=== PATIENT | female | born 1990 | race Caucasian/White ===

== ENCOUNTER 2019-12-22 09:23 | Inpatient (IN) | payer MEDICAID ==
[~2019-12-22] VITALS: Ht 154.9 cm; Wt 100.2 kg
[2019-12-22] MEDS ORDERED: TERBUTALINE SULFATE 1MG/ML VIAL SUBCUT NR (10:15)
[2019-12-22] MEDS ORDERED: RHO(D) IMMUNE GLOBULIN 300 MCG/SYR IM NR (10:15)
[2019-12-22] MEDS ORDERED: DEXT 5%/LACTATED RINGERS 1,000 ML IV SCH (10:16)
[2019-12-22] MEDS: LACTATED RINGERS 1,000 ML IV SCH ×2 (10:28→10:46)
[2019-12-22] MEDS ORDERED: CITRIC ACID/SODIUM CITRATE SOLN 30ML UDC PO NR (10:45)
[2019-12-22] MEDS ORDERED: MORPHINE SULFATE/PF 1MG/ML 10ML AMP ONE (10:47)
[2019-12-22] MEDS ORDERED: OXYTOCIN 10 UNITS/ML 1ML ONE ×2 (10:47→11:51)
[2019-12-22] MEDS ORDERED: FENTANYL CITRATE/PF 50MCG/ML 2ML VIAL ONE (10:47)
[2019-12-22] MEDS ORDERED: EPHEDRINE SULFATE 50MG/ML VIAL ONE (10:47)
[2019-12-22] MEDS ORDERED: GLYCOPYRROLATE 0.2 MG/ML 2ML VIAL ONE (10:47)
[2019-12-22] MEDS ORDERED: CEFAZOLIN SODIUM 1000MG/VIAL ONE (10:47)
[2019-12-22] MEDS ORDERED: ONDANSETRON HCL 4MG/2ML INJ ONE (10:48)
[2019-12-22] MEDS ORDERED: PHENYLEPHRINE HCL 10 MG/ML 1ML (IV VIAL) IV ONE (10:48)
[2019-12-22 10:51] LABS: BASOPHILS % 0.2 % (0.0-2.0); EOSINOPHILS % 0.3 % (0.0-5.0); HEMATOCRIT. 37.8 % (36.0-48.0); LYMPHOCYTES % 13.5 % (20.0-50.0); MEAN CORPUSCULAR HEMOGLOBIN 30.2 pg (28.0-32.0); MEAN CORPUSCULAR VOLUME 87.8 fL (81.0-99.0); MEAN PLATELET VOLUME 8.6 fl (7.4-10.4); MONOCYTES % 4.9 % (2.0-8.0); NEUTROPHILS % 81.1 % (40.0-76.0); PLATELET 264 x1000/uL (130-400); RED BLOOD CELL COUNT 4.31 mill/uL (4.2-5.4); RED CELL DISTRIBUTION WIDTH 14.4 % (11.6-14.6)
[2019-12-22 10:56] LABS: CLARITY URINE CLEAR (CLEAR); COLOR URINE YELLOW (YELLOW); KETONES URINE 2+ (NEGATIVE); LEUKOCYTE ESTERASE URINE TRACE (NEGATIVE); NITRITE URINE NEGATIVE (NEGATIVE); OCCULT BLOOD URINE NEGATIVE (NEGATIVE); PH URINE 6.5 (4.5-8.0); PROTEIN URINE NEGATIVE (NEGATIVE); SPECIFIC GRAVITY URINE 1.021 (1.005-1.030); UROBILINOGEN URINE 0.2 E.U./dL (0.2-1.0)
[2019-12-22 11:02] LABS: PARTIAL THROMBOPLASTIN TIME 27.3 sec (23.4-31.0); PROTHROMBIN TIME 10.4 sec (9.6-11.0)
[2019-12-22] MEDS ORDERED: DIPHENHYDRAMINE 50MG/ML VIAL ONE (11:49)
[2019-12-22] MEDS ORDERED: KETOROLAC 60MG/2ML VIAL IM ONE (11:49)
[2019-12-22 11:53] LABS: *BARBITURATES SCREEN URINE NEGATIVE (NEGATIVE); *COCAINE SCREEN URINE NEGATIVE (NEGATIVE); METHADONE URINE SCREEN NEGATIVE (NEGATIVE); OPIATES URINE SCREEN NEGATIVE (NEGATIVE); PHENCYCLIDINE URINE SCREEN NEGATIVE (NEGATIVE)
[2019-12-22 11:54] LABS: *AMPHETAMINES SCREEN URINE NEGATIVE (NEGATIVE); *BENZODIAZEPINES SCREEN URINE NEGATIVE (NEGATIVE); CANNABINOID URINE SCREEN NEGATIVE (NEGATIVE)
[2019-12-22] MEDS ORDERED: DEXT 5%/LR + PITOCIN 20UNITS/L 1,000 ML IV SCH (12:28)
[2019-12-22] MEDS ORDERED: BISACODYL 10MG SUPP PR PRN (12:30)
[2019-12-22] MEDS ORDERED: RHO(D) IMMUNE GLOBULIN 300 MCG/SYR IM PRN (12:30)
[2019-12-22] MEDS ORDERED: IBUPROFEN 400MG TABLET PO PRN (12:30)
[2019-12-22] MEDS ORDERED: KETOROLAC 30MG/ML VIAL IV PRN (12:30)
[2019-12-22 13:11] LABS: HEPATITIS B SURFACE ANTIGEN NEGATIVE
[2019-12-22] MEDS ORDERED: DIPHENHYDRAMINE 50MG/ML VIAL IV PRN (14:30)
[2019-12-22] MEDS ORDERED: BUTORPHANOL TARTRATE 2 MG/ML VIAL IV PRN (14:30)
[2019-12-22] MEDS ORDERED: NALOXONE HCL 0.4 MG/ML 1ML VIAL IV PRN (14:30)
[2019-12-22] MEDS ORDERED: KETOROLAC 30MG/ML VIAL IV SCH (14:30)
[2019-12-22 18:00] VITALS: BP 110/53
[2019-12-22 19:01] VITALS: BP 112/51
[2019-12-22 20:00] VITALS: BP 114/63
[2019-12-23] VITALS: BP 104/57
[2019-12-23 04:00] VITALS: BP 116/62
[2019-12-23 06:46] LABS: BASOPHILS % 0.3 % (0.0-2.0); EOSINOPHILS % 0.6 % (0.0-5.0); HEMATOCRIT. 29.7 % (36.0-48.0); HEMOGLOBIN. 10.3 g/dL (12.0-16.0); LYMPHOCYTES % 12.8 % (20.0-50.0); MEAN CORPUSCULAR HEMOGLOBIN 30.4 pg (28.0-32.0); MEAN CORPUSCULAR VOLUME 87.7 fL (81.0-99.0); MEAN PLATELET VOLUME 8.5 fl (7.4-10.4); MONOCYTES % 8.6 % (2.0-8.0); NEUTROPHILS % 77.7 % (40.0-76.0); PLATELET 228 x1000/uL (130-400); RED BLOOD CELL COUNT 3.38 mill/uL (4.2-5.4); RED CELL DISTRIBUTION WIDTH 14.4 % (11.6-14.6)
[2019-12-23] MEDS: IBUPROFEN 800MG TABLET PO PRN (16:36)
[2019-12-23 20:00] VITALS: BP 108/61
[2019-12-24] VITALS: BP 106/63
[2019-12-24] MEDS: IBUPROFEN 800MG TABLET PO PRN ×2 (01:38→11:29)
[2019-12-24 04:20] VITALS: BP 103/53
[2019-12-24 08:30] VITALS: BP 123/71
== END 2019-12-24 16:00 | disposition home or self-care (01) | DRG 540 ==
LOC: 8 EST LDRP 09:23 → OBSVTOIN 09:23 → 8EST 17:40
PROVIDERS: ADMIT Obstetrics & Gynecology; ATTEND Obstetrics & Gynecology
PROC: 10D00Z1 Extraction of Products of Conception, Low, Open Approach (ICD-10-PCS; principal; 2019-12-22)
PROC: 30233S1 Transfusion of Nonautologous Globulin into Peripheral Vein, Percutaneous Approach (ICD-10-PCS; 2019-12-23)
DX: O34.211 Maternal care for low transverse scar from previous cesarean delivery (principal); D62 Acute posthemorrhagic anemia; O99.03 Anemia complicating the puerperium; O99.214 Obesity complicating childbirth; Z3A.39 39 weeks gestation of pregnancy; Z82.49 Family history of ischemic heart disease and other diseases of the circulatory system; Z80.8 Family history of malignant neoplasm of other organs or systems; Z67.11 Type A blood, Rh negative; Z37.0 Single live birth
CPT/HCPCS: 36415; 80305; 81003; 85025; 86592; 86703; 86762; 86850; 86870; 86886; 86900; 86920; 87340; 88307; 90384; 99281; J0690; J1200; J1885; J2274; J2370; J2405; J2590; J3010; J3105; J3490; J7120; J7121